=== PATIENT | female | born 1990 | race Hispanic/Latino ===

== ENCOUNTER 2021-10-08 06:46 | Emergency (ER) | payer OTHER ==
[~2021-10-08] VITALS: Ht 170.2 cm; Wt 95.3 kg
[2021-10-08 07:26] VITALS: BP 122/75
== END 2021-10-08 07:00 | disposition left against medical advice (07) ==
LOC: EDH 06:46
DX: Z02.83 Encounter for blood-alcohol and blood-drug test (principal); Z53.21 Procedure and treatment not carried out due to patient leaving prior to being seen by health care provider

== ENCOUNTER 2025-02-19 00:41 | Emergency (ER) | payer SELFPAY ==
[~2025-02-19] VITALS: Ht 162.6 cm; Wt 92.5 kg
[2025-02-19 01:05] LABS: BASOPHILS # (AUTO) 0.05 K/uL (0.00-0.20); BASOPHILS % (AUTO) 0.5 % (0.0-5.0); EOSINOPHILS # (AUTO) 0.29 K/uL (0.00-0.70); EOSINOPHILS % (AUTO) 2.8 % (0.0-8.0); HEMATOCRIT 34.1 % (36-48); IMMATURE GRANULOCYTE ABSOLUTE 0.03 K/uL (0-1); LYMPHOCYTES # (AUTO) 4.3 K/uL (1.0-4.8); LYMPHOCYTES % (AUTO) 40.6 % (21.0-51.0); MEAN CORPUSCULAR HEMOGLOBIN 27.6 pg (27.0-33.0); MEAN CORPUSCULAR HGB CONC 33.1 g/dL (32.0-36.0); MEAN CORPUSCULAR VOLUME 83.2 fL (79-99); MONOCYTES # (AUTO) 0.9 K/uL (0.1-1.0); MONOCYTES % (AUTO) 8.1 % (3.0-13.0); NEUTROPHILS % (AUTO) 47.7 % (40.0-77.0); PLATELET COUNT (AUTO) 274 K/uL (130-400); RED CELL DISTRIBUTION WIDTH 13.7 % (11.0-15.5); WHITE BLOOD COUNT (AUTO) 10.5 K/uL (4.8-10.8)
[2025-02-19 01:13] LABS: CREATININE 0.7 mg/dL (0.5-1.0); POTASSIUM 3.7 mmol/L (3.5-5.1)
[2025-02-19 02:27] LABS: HCG,QUALITATIVE URINE NEGATIVE (NEGATIVE)
[2025-02-19 02:35] LABS: APPEARANCE,URINE CLOUDY (CLEAR); BACTERIA,URINE RARE /HPF (None Seen); BILIRUBIN,URINE NEGATIVE (NEGATIVE); COLOR,URINE LIGHT-YELLOW (YELLOW); GLUCOSE, URINE (UA) NEGATIVE (NEGATIVE); KETONES,URINE NEGATIVE (NEGATIVE); LEUKOCYTE ESTERASE ,URINE 250 Leu/uL (NEGATIVE); MUCUS,URINE RARE LPF (None Seen); NITRATE,URINE NEGATIVE (NEGATIVE); OCCULT BLOOD,URINE NEGATIVE (NEGATIVE); PROTEIN,URINE NEGATIVE (NEGATIVE); SQUAMOUS EPITHELIAL CELL,UR MANY /HPF (0-2); UROBILINOGEN,URINE 0.2 mg/dL (0.2-1.0); WBC,URINE 26-50 /HPF (0-1)
[2025-02-19] MEDS: cefTRIAXone 1G VIAL IM ONE (03:09)
[2025-02-19] MEDS: LIDOCAINE HCL 2% VISCOUS 15 ML UDCUP PO ONE (03:11)
[2025-02-19] MEDS: MAG/ALUM/SIMETH 30 ML UDCUP PO ONE (03:12)
[2025-02-19] MEDS: PANTOPrazole 40 MG TAB DR PO ONE (03:12)
--- NOTE | 2025-02-19 03:37 | ERN ---
General Chief Complaint: Chest Pain Stated Complaint: C/O CHEST PRESSURE WITH SOB, UPPER BACK PAIN Time Seen by MD: 00:50 Time Seen by Midlevel: 00:50 Source: patient History of Present Illness Initial Comments 34-year-old female who presents to the emergency department due to chest pain onset four days. Patient reports nausea and describes the pain as a burning sensation but denies any abdominal pain, diarrhea, dysuria, shortness of breath or further associated symptoms. The patient reports a history of anxiety otherwise denies further significant past medical history. Allergies: Coded Allergies: No Known Allergies (Unverified Allergy, Unknown, 10/08/21) Past Medical History Past Medical History: No Pertinent History Past Surgical History: None ROS Dictation Constitutional: Negative for fever,chills, and weight loss Eyes: Negative for injury, pain,redness, and discharge ENT: Negative for injury,pain or swelling Cardiovascular: Positive for chest pain Negative for palpitations, and edema Respiratory: Negative for shortness of breath, cough, and wheezing, Abdomen/GI: Positive for nausea Negative for abdominal pain, vomiting, diarrhea, and constipation Back: Negative for injury and pain : Negative for painful urination, bleeding or discharge MS/Extremity: Negative for injury and deformity Skin: Negative for rash, and discoloration Neuro: Negative for headache, weakness, numbness, tingling, and seizure Psych: Negative for suicide ideation, homicidal ideation, and hallucinations Physical Exam Physical Exam Dictation General: awake, alert, no acute distress Head/Face: Normocephalic, atraumatic Eyes: PERRL, EOMI, normal conjunctiva ENT: oral cavity clear, oral mucosa moist Neck: Supple, normal range of motion Cardiovascular: RRR, normal S1/S2 Respiratory: CTAB, no respiratory distress, no rales or wheezes Abdomen: Soft, non-tender, non-distended, no guarding or rebound. Skin: Warm, dry, normal turgor, no rash MS/Extremity: Pulses equal, no cyanosis, neurovascular intact, FROM Neuro: COAx4, GCS 15, strength 5/5, CN 2-12 intact, normal cerebellar exam, normal gait Psych: Normal behavior, mood, and affect normal Results Laboratory and Microbiology Lab and Micro Result Laboratory Tests Test 02/19/25 00:55 02/19/25 01:55 White Blood Count 10.5 K/uL (4.8-10.8) Red Blood Count 4.10 MIL/uL (4.00-5.50) Hemoglobin 11.3 g/dL (12.0-16.0) L Hematocrit 34.1 % (36-48) L Mean Corpuscular Volume 83.2 fL (79-99) Mean Corpuscular Hemoglobin 27.6 pg (27.0-33.0) Mean Corpuscular Hemoglobin Concent 33.1 g/dL (32.0-36.0) Red Cell Distribution Width 13.7 % (11.0-15.5) Platelet Count 274 K/uL (130-400) Mean Platelet Volume 11.6 fL (7.5-10.5) H Immature Granulocyte % (Auto) 0.3 % (0-1) Neutrophils (%) (Auto) 47.7 % (40.0-77.0) Lymphocytes (%) (Auto) 40.6 % (21.0-51.0) Monocytes (%) (Auto) 8.1 % (3.0-13.0) Eosinophils (%) (Auto) 2.8 % (0.0-8.0) Basophils (%) (Auto) 0.5 % (0.0-5.0) Neutrophils # (Auto) 5.0 K/uL (1.8-7.7) Lymphocytes # (Auto) 4.3 K/uL (1.0-4.8) Monocytes # (Auto) 0.9 K/uL (0.1-1.0) Eosinophils # (Auto) 0.29 K/uL (0.00-0.70) Basophils # (Auto) 0.05 K/uL (0.00-0.20) Absolute Immature Granulocyte (auto 0.03 K/uL (0-1) Nucleated Red Blood Cells 0.0 % (0.0-0.19) Sodium Level 140 mmol/L (136-145) Potassium Level 3.7 mmol/L (3.5-5.1) Chloride Level 104 mmol/L (101-111) Carbon Dioxide Level 27 mmol/L (21-32) Blood Urea Nitrogen 15 mg/dL (7-18) Creatinine 0.7 mg/dL (0.5-1.0) Glomerular Filtration Rate Calc 116 mL/min (>90) Random Glucose 107 mg/dL (70-105) H Total Calcium 8.9 mg/dL (8.5-10.1) Troponin I High Sensitivity 5 ng/L (4-50) Urine Color LIGHT-YELLOW (YELLOW) Urine Appearance CLOUDY (CLEAR) H Urine pH 7.0 (5.0-8.0) Urine Specific Jackson 1.016 (1.001-1.031) Urine Protein NEGATIVE mg/dL (NEGATIVE) Urine Glucose (UA) NEGATIVE mg/dL (NEGATIVE) Urine Ketones NEGATIVE mg/dL (NEGATIVE) Urine Occult Blood NEGATIVE (NEGATIVE) Urine Nitrate NEGATIVE (NEGATIVE) Urine Bilirubin NEGATIVE mg/dL (NEGATIVE) Urine Urobilinogen 0.2 mg/dL (0.2-1.0) Urine Leukocyte Esterase 250 Liliana/uL (NEGATIVE) H Urine RBC 2-5 /HPF (0-1) H Urine WBC 26-50 /HPF (0-1) H Urine Squamous Epithelial Cells MANY /HPF (0-2) Urine Bacteria RARE /HPF (None Seen) Urine HCG, Qualitative NEGATIVE (NEGATIVE) Labs Reviewed?: Yes EKG/XRAY/US/CT/MRI EKG Comment Date: 01/2025 Time: 005 Rate: 89 EKG interpretation: Sinus rhythm, no STEMI, normal EKG Reviewed by ED Attending MDM MDM: Differential diagnosis: Musculoskeletal chest pain, VT, acid reflux Rationale: 34-year-old female who presents to the emergency department due to chest pain onset four days. Patient reports nausea and describes the pain as a burning sensation but denies any abdominal pain, diarrhea, dysuria, shortness of breath or further associated symptoms. The patient reports a history of anxiety otherwise denies further significant past medical history. Vitals stable during ED course. Labs obtained CBC and BNP are nonspecific, negative troponin. UA shows a urinary tract infection with 250 leukocyte esterase 26-50 WBCs. Patient was administered Rocephin and GI cocktail in the ED. On re-examination patient verbalized she better burning sensation had resolved. Patient was educated on findings and diagnosis. Antibiotics prescribed for outpatient treatment. Advised to follow up with PCP. Return to the emergency department if any worsening symptoms. Patient verbalized understanding. Patient stable for discharge. There are no social concerns with this patient. I independently interpreted the test that were performed, results were reviewed by me and considered findings on radiology if ordered. Medical management and examination interpretation discussions were had by me with other qualified healthcare professionals as indicated for the patient's care. ED Course Orders Procedure Category Date Status Time Cbc With Differential LAB 02/19/25 Complete 00:51 Basic Metabolic Panel LAB 02/19/25 Complete 00:51 Urinalysis LAB 02/19/25 Complete W/Microscopic 00:51 ,Urine Test LAB 02/19/25 Complete 00:51 Troponin I High LAB 02/19/25 Complete Sensitivity 00:51 12 Lead Ekg Tracing- EKG 02/19/25 Logged Technical 00:51 Chest 1vw RAD 02/19/25 Taken 00:51 Culture Urine AME 02/19/25 In Process 02:36 Ceftriaxone 1g Vial PHA 02/19/25 Complete (Rocephine 1g Inj) 03:00 Mag/Alum/Simeth 30ml PHA 02/19/25 Complete (Maalox Plus 30ml) 03:00 Pantoprazole 40mg Tab PHA 02/19/25 Complete (Protonix 40mg Tab 03:00 Lidocaine Hcl 2% PHA 02/19/25 Complete Viscous (Lidocaine Hcl 03:00 Current Medications Medications (Trade) Dose Ordered Sig/David Route PRN Reason Start Time Stop Time Status Last Admin Dose Admin Al Hydroxide/Mg Hydroxide (MAALox PLUS 30ML) 30 ml ONCE ONCE PO 02/19/25 03:00 02/19/25 03:01 DC 02/19/25 03:12 Ceftriaxone Sodium (ROCEphine 1G INJ) 1 gm ONCE ONCE IM 02/19/25 03:00 02/19/25 03:01 DC 02/19/25 03:09 Lidocaine HCl (Lidocaine HCl 2% Viscous) 10 ml ONCE ONCE PO 02/19/25 03:00 02/19/25 03:01 DC 02/19/25 03:11 Pantoprazole Sodium (PROTonix 40MG TAB) 40 mg ONCE ONCE PO 02/19/25 03:00 02/19/25 03:01 DC 02/19/25 03:12 Vital Signs Date Time Temp Pulse Resp B/P (MAP) Pulse Ox O2 Delivery O2 Flow Rate FiO2 02/19/25 01:15 98.1 77 16 115/55 99 Room Air* 0 21 02/19/25 01:00 98.4 89 16 144/93 100 Room Air 0 HEART Score Response (Comments) Value History: Low suspicion (0) 0 EKG: Normal 0 Age: < 45yrs (0) 0 Risk Factors: No known risk factors (0) 0 Initial Troponin: Normal limit (0) 0 HEART Score Risk: Low Risk for MACE (1-3) Total 0 DX & DISP Disposition: Discharge Departure Impression: Primary Impression: Chest pain with low risk for cardiac etiology Additional Impression: Acid reflux Condition: Stable Scripts Omeprazole (Omeprazole) 10 Mg Capsule.dr 1 CAP PO DAILY for 7 Days, #7 CAP 0 Refills Prov: DANAE JAY 02/19/25 Cephalexin (Cephalexin) 500 Mg Tablet 1 TAB PO BID for 7 Days, #7 TAB 0 Refills Prov: DANAE JAY 02/19/25 Additional Instructions: Discharge home. Rest. Follow up with primary care in 24 hours. Return to the ER for any acute changes or worsening symptoms. If any medications were prescribed take as directed. Okay to continue home medications unless otherwise discussed during your visit in the emergency room today. Patient was also advised to follow-up with primary care physician in 1 to 2 days for continued monitoring. Referrals: SELF,REFERRAL (PCP) I performed the substantive portion of the visit. I have reviewed and personally made and approve the management plan that is documented in the notes by myself or the VLADIMIR. I acknowledge full responsibility for the patient's management plan. DANAE JAY Feb 19, 2025 03:37
[2025-02-19] MEDS ORDERED: OMEP10CA5 PO (03:57)
[2025-02-19] MEDS ORDERED: CEPH500T PO (03:57)
[2025-02-19 04:09] VITALS: BP 117/82; PULSE 97; RESP 17; TEMP 98.2; O2SAT 98
--- NOTE | 2025-02-19 08:52 | EKG ---
[facility] Test Date: 2025-02-19 Test Time: 00:50:47 Pat Name: MORENA REED Department: [facility] Room: Gender: F [employer] Machine: [id number] : 1990 Requested By: DANAE JAY Order Number: [id number] Reading MD: Melissa Dumont Measurements Intervals [place] Rate: 89 P: 32 ID: [id number] QRS: 77 QRSD: 90 T: 15 QT: 356 QTc: 434 Interpretive Statements Sinus rhythm No previous ECG available for comparison Electronically Signed On 02-20-2025 13:20:36 CDT by Melissa Dumont Please click the below link to view image of tracing.
--- NOTE | 2025-02-19 10:24 | HMCIMG ---
CHEST 1VW HISTORY: Chest pain COMPARISON: None FINDINGS: A frontal projection of the chest was obtained. No acute pulmonary infiltrates is seen. The heart is normal in size. Prominent interstitial markings are seen. No evidence of aortic calcification is seen. IMPRESSION: 1. No acute pulmonary infiltrate is seen.
== END 2025-02-19 04:11 | disposition home or self-care (01) ==
LOC: EDH 00:41
DX: R07.89 Other chest pain (principal); K21.9 Gastro-esophageal reflux disease without esophagitis
CPT/HCPCS: 99285; 71045; 84484; 80048; 85025; 87086; 81001; 81025; 36415; 96372; 93005; J0696